=== PATIENT | female | born 1995 | race Caucasian/White ===

== ENCOUNTER → 2017-11-08 | Outpatient (CLI) | payer OTHER ==
[~2017-11-08] MED LIST: ACID REFLUX; ALLERGY MED; BIRTH CONTROL PO; CEPHALEXIN500 MG PO; DICYCLOMINE HCL20 MG PO; FERRALET 90 DU1 EACH PO; IRON PO; LEVOCETIRIZINE PO; OMEPRAZOLE40 MG PO; SINCALIDE 3 MCG/VIAL INJ ONE; TRI-SPRINTEC1 EACH PO; VITAMIN D1000 UNI1 PO; ZOFRAN PO
--- NOTE | 2017-11-08 11:08 | Diagnostic Imaging Report ---
PROCEDURE:US GALLBLADDER COMPARISON:CT abdomen and pelvis 07/09/2016. INDICATIONS:Abdomen Pain TECHNIQUE: Melendez-scale and color doppler transverse and longitudinal images of the right upper quadrant of the abdomen were obtained. FINDINGS: Liver: 14.3 cm in right mid-clavicular line. Normal parenchymal echogenicity. No masses. Main portal vein: 0.9 cm in caliber. Hepatopedal flow. Gallbladder: Unremarkable sonographic appearance. No shadowing calculus, wall thickening, or pericholecystic fluid. Common Bile Duct: 0.3 cm in caliber. Sonographic Rao's sign: Reported as Negative Right kidney: 12.7 cm in length. Normal renal cortical echogenicity. No solid masses or hydronephrosis. Pancreas: The visualized portions are unremarkable. Inferior vena cava: Patent Aorta: Non-aneurysmal Ascites: None in the right upper quadrant of the abdomen. CONCLUSION: Unremarkable right upper quadrant ultrasound. Dictated by: Kyle Siddiqui M.D. on 11/08/2017 at 11:17 Electronically approved by: Kyle Siddiqui M.D. on 11/08/2017 at 11:17
--- NOTE | 2017-11-08 19:50 | Diagnostic Imaging Report ---
Hepatobiliary Scan with Gallbladder Ejection Fraction Clinical information: 22 F with chronic abdominal pain with nausea and vomiting. Report: Following intravenous administration of 5.6 millicuries of Tc-99m mebrofenin, dynamic images of the abdomen in the anterior projection were obtained through 30 minutes. Sincalide (CCK analog) 2.3 micrograms was administered intravenously over 30 minutes with additional imaging for determination of gallbladder ejection fraction. Perfusion to the liver is normal. Extraction of tracer from the blood pool by the liver parenchyma is normal. Tracer is seen promptly within the biliary tract. The gallbladder begins to fill by 8 minutes post-injection of tracer and fills adequately. Tracer is seen in the small bowel by 17 minutes. The gallbladder ejection fraction with administration of sincalide is 90% (normal greater than 40%). Impression: 1. Filling of the gallbladder excludes the diagnosis of acute cystic duct obstruction/acute cholecystitis. 2. Normal gallbladder ejection fraction of 90% does not support the clinical diagnosis of chronic cholecystitis/gallbladder dyskinesia. Signed by: Dr. Luzma Christian M.D. on 11/08/2017 7:47 PM
== END ==
LOC: US 10:06
PROVIDERS: ATTEND Internal Medicine Gastroenterology
DX: R10.9 Unspecified abdominal pain (principal)
CPT/HCPCS: 76705; 78227; 81025; A9537; J2805

== ENCOUNTER 2018-12-21 19:37 | Emergency (ER) | payer OTHER ==
[~2018-12-21] VITALS: Ht 167.6 cm; Wt 104.3 kg
[~2018-12-21 19:37] MED LIST changes: -SINCALIDE 3 MCG/VIAL INJ ONE
--- OUTSIDE RECORDS SUMMARY | 2018-12-21 19:40 | XMS REPORT ---
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 Allergies, Adverse Reactions, Alerts Allergy Name Allergy Type Status Severity Reaction(s) Onset Date Inactive Date Treating Clinician Comments latex DA Active SV 2018-08-25 00:00:00 latex DA Active SV 2018-03-31 00:00:00 Medications This patient has no known medications. Results Test Description Test Time Test Comments Text Results Atomic Results Result Comments [facility] [address] [address] Patient Name: MOHINDER BUI MR #: [id number] : 1995 Age/Sex: 22/F Req #: [id number] Adm Physician: Ordered by: KIN GRAHAM MD Report #: [id number] Location: Room/Bed: Procedure: [id number] US/US GALLBLADDER Exam Date: Exam Time: REPORT STATUS: Signed PROCEDURE: US GALLBLADDER COMPARISON: CT abdomen and pelvis 07/09/2016. INDICATIONS: Abdomen Pain TECHNIQUE: Melendez-scale and color doppler transverse and longitudinal images of the right upper quadrant of the abdomen were obtained. FINDINGS: Liver: 14.3 cm in right mid-clavicular line. Normal parenchymal echogenicity. No masses. Main portal vein: 0.9 cm in caliber. Hepatopedal flow. Gallbladder: Unremarkable sonographic appearance. No shadowing calculus, wall thickening, or pericholecystic fluid. Common Bile Duct: 0.3 cm in caliber. Sonographic Rao's sign: Reported as Negative Right kidney: 12.7 cm in length. Normal renal cortical echogenicity. No solid masses or hydronephrosis. Pancreas: The visualized portions are unremarkable. Inferior vena cava: Patent Aorta: Non-aneurysmal Asc ites: None in the right upper quadrant of the abdomen. CONCLUSION: Unremarkable right upper quadrant ultrasound. Dictated by: Christian Perez M.D. on 11/08/2017 at 11:17 Electronically approved by: Christian Perez M.D. on 11/08/2017 at 11:17 Dictated By: CHRISTIAN PEREZ MD [id number] Transcribed By: ALVIN on 11/08/17 1117 COPY TO: KIN GRAHAM MD HE[address]OBILIARY [address] [address] Patient Name: MOHINDER BUI MR #: [id number] : 1995 Age/Sex: 22/F Req #: [id number] Adm Physician: Ordered by: KIN GRAHAM MD Report #: [id number] Location: Room/Bed: Procedure: [id number] NM/HEPTOBILIARY W PHARM Exam Date: 11/08/17 Exam Time: 1130 REPORT STATUS: Signed Hepatobiliary Scan with Gallbladder Ejection Fraction Clinical information: 22 F with chronic abdominal pain with nausea and vomiting. Report: Following intravenous administration of 5.6 millicuries of Tc-99m mebrofenin, dynamic images of the abdomen in the anterior projection were obtained through 30 minutes. Sincalide (CCK analog) 2.3 micrograms was administered intravenously over 30 minutes with additional imaging for determination of gallbladder ejection fraction. Perfusion to the liver is normal. Extraction of tracer from the blood pool by the liver parenchyma is normal. Tracer is seen promptly within the biliary tract. The gallbladder begins to fill by 8 minutes post-injection of tracer and fills adequately. Tracer is seen in the small bowel by 17 minutes. The gallbladder ejection fraction with administration of sincalide is 90% (normal greater than 40%). Impression: 1. Filling of the gallbladder excludes the diagnosis of acute cystic duct obstruction/acute cholecystitis. 2. Normal gallbladder ejection fraction of 90% does not support the clinical diagnosis of chronic cholecystitis/gallbladder dyskinesia. Signed by: Dr. Faisal Christian M.D. on 11/08/2017 7:47 PM Dictated By: FAISAL CHRISTIAN MD 46 Transcribed By: YRN on 11/08/171946 COPY TO: KIN GRAHAM MD
[2018-12-21] MEDS ORDERED: XARELTO20 MG PO (20:01)
== END 2018-12-21 20:07 | disposition home or self-care (01) ==
LOC: ER 19:37
DX: M79.662 Pain in left lower leg (principal)
CPT/HCPCS: 99282

== ENCOUNTER 2019-12-11 02:34 | Emergency (ER) | payer OTHER ==
[~2019-12-11] VITALS: Ht 167.6 cm; Wt 104.3 kg
[~2019-12-11 02:34] MED LIST changes: +XARELTO20 MG PO
--- NOTE | 2019-12-11 03:42 | Diagnostic Imaging Report ---
EXAMINATION: CHEST 2 VIEWS INDICATION: RIGHT LATERAL CHEST PAIN COMPARISON: None FINDINGS: TUBES and LINES: None. LUNGS: Lungs are mildly hypoinflated. Mild bilateral perihilar, peribronchial thickening perihilar streaky densities. There is no evidence of pneumonia or pulmonary edema. PLEURA: No pleural effusion or pneumothorax. HEART AND MEDIASTINUM: The cardiomediastinal silhouette is unremarkable. BONES AND SOFT TISSUES: No acute osseous lesion. Soft tissues are unremarkable. UPPER ABDOMEN: No free air under the diaphragm. IMPRESSION: No acute thoracic abnormality. Signed by: Dr. Modesto Maldonado M.D. on 12/11/2019 3:40 AM
[2019-12-11 03:50] VITALS: BP 114/72
== END 2019-12-11 03:59 | disposition home or self-care (01) ==
LOC: ER 02:34
DX: R07.89 Other chest pain (principal); F31.9 Bipolar disorder, unspecified; Z86.718 Personal history of other venous thrombosis and embolism
CPT/HCPCS: 71046; 99283

== ENCOUNTER 2021-02-18 13:34 | Emergency (ER) | payer OTHER ==
[~2021-02-18] VITALS: Ht 167.6 cm; Wt 104.3 kg
[2021-02-18] MEDS ORDERED: ONDANSETRON HCL INJ 2MG/ML 2ML 2 MG/ML VIAL IV STA (13:55)
[2021-02-18] MEDS ORDERED: SODIUM CHLORIDE 0.9% 1000ML 1,000 ML IV STA (13:55)
[2021-02-18 14:21] LABS: BASOPHILS # (AUTO) 0.1 (0.0-0.1); BASOPHILS % 0.6 % (0.0-1.0); EOSINOPHILS # (AUTO) 0.1 (0.0-0.4); EOSINOPHILS % 1.1 % (0.0-6.0); HEMATOCRIT 43.1 % (34.2-44.1); HEMOGLOBIN 14.5 g/dL (12.0-16.0); LYMPHOCYTES # (AUTO) 2.4 (1.0-3.2); LYMPHOCYTES % 29.5 % (18.0-39.1); MEAN CORPUSCULAR HEMOGLOBIN 29.7 pg (28-32); MEAN CORPUSCULAR HGB CONC 33.6 g/dL (31-35); MEAN CORPUSCULAR VOLUME 88.3 fL (81-99); MONOCYTES # (AUTO) 0.5 (0.2-0.8); MONOCYTES % 6.2 % (4.4-11.3); NEUTROPHILS # (AUTO) 5.1 (2.1-6.9); NEUTROPHILS % 62.1 % (38.7-80.0); PLATELET COUNT 255 x10e3/uL (140-360); RED BLOOD COUNT 4.88 x10e6/uL (3.6-5.1); RED CELL DISTRIBUTION WIDTH 12.2 % (11.7-14.4)
[2021-02-18 14:42] LABS: CLARITY,URINE SL CLOUDY (CLEAR); COLOR,URINE YELLOW (YELLOW); KETONES,URINE 2+ (NEGATIVE); LEUKOCYTE ESTERASE ,URINE NEGATIVE (NEGATIVE); NITRITE,URINE NEGATIVE (NEGATIVE); PROTEIN,URINE DIPSTICK NEGATIVE (NEGATIVE); URINE UROBILINOGEN 0.2 mg/dL (0.2 - 1)
[2021-02-18 14:53] LABS: RBC,URINE 0-5 /HPF (0-5); WBC,URINE (MAN) 0-5 /HPF (0-5)
[2021-02-18 14:54] LABS: BACTERIA,URINE MANY /HPF; EPITHELIAL CELLS,URINE MODERATE /LPF
[2021-02-18 15:15] LABS: ALANINE AMINOTRANSFERASE 26 IU/L (0-55); ALBUMIN 4.1 g/dL (3.5-5.0); ALBUMIN/GLOBULIN RATIO 1.2 (0.8-2.0); ALKALINE PHOSPHATASE 84 IU/L (40-150); ANION GAP 12.4 mmol/L (8-16); BLOOD UREA NITROGEN 10 mg/dL (7-26); BUN/CREATININE RATIO 13 (6-25); CALCIUM 9.3 mg/dL (8.4-10.2); CARBON DIOXIDE 27 mmol/L (22-29); CHLORIDE 105 mmol/L (98-107); CREATININE, SERUM 0.76 mg/dL (0.57-1.11); EST GLOMERULAR FILTRATION RATE > 60 ML/MIN (60-); GLUCOSE 106 mg/dL (74-118); POTASSIUM 3.4 mmol/L (3.5-5.1); SODIUM 141 mmol/L (136-145)
[2021-02-18] MEDS ORDERED: GADOBENATE DIMEGLUMINE 1 ML IV ONE (15:46)
[2021-02-18 18:32] VITALS: BP 106/60
== END 2021-02-18 18:30 | disposition home or self-care (01) ==
LOC: ER 13:55
DX: G93.0 Cerebral cysts (principal); R51.9 Headache, unspecified; R11.2 Nausea with vomiting, unspecified; F31.9 Bipolar disorder, unspecified; Z86.718 Personal history of other venous thrombosis and embolism
CPT/HCPCS: 36415; 70450; 70553; 80053; 81001; 81025; 85025; 99284; A9577; J2405; J7030